=== PATIENT | male | born 1965 | race Caucasian/White ===

== ENCOUNTER 2016-05-03 16:36 | Emergency (ER) | payer OTHER ==
[~2016-05-03] VITALS: Ht 177.8 cm; Wt 110.0 kg
[2016-05-03 16:38] VITALS: BP 144/85; PULSE 92; RESP 20; TEMP 97.9; O2SAT 96
--- NOTE | 2016-05-03 16:48 | PD ---
HPI Chief Complaint: Back/ Neck Pain or Injury Time Seen by Provider: 16:47 Travel History International Travel<30 days: No Contact w/Intl Traveler<30days: No Traveled to known affect area: No History of Present Illness HPI 50-year-old male with no significant medical history presents to the emergency department for evaluation a right lower back pain radiating into the anterior right thigh. Patient states it began about 1 week ago when he had it under control until walking up pacing in detail yesterday. He slipped but did not fall but this exacerbated the pain. Denies any saddle paresthesia, loss of bowel or bladder, or lower extremity weakness. No recent illnesses, fever, or chills. No other symptoms to report. PFSH Past Medical History Medical History: Denies Significant Hx Social History Alcohol Use: No Tobacco Use: No Substance Use: No Allergies-Medications (Allergen,Severity, Reaction): Coded Allergies: No Known Allergies (Unverified , 05/03/16) Review of Systems Except as stated in HPI: all other systems reviewed are Neg Physical Exam Narrative GENERAL: Well-nourished male patient, in no acute distress. Patient is ambulatory with a nonantalgic gait SKIN: Warm and dry. HEAD: Atraumatic. Normocephalic. EYES: Pupils equal and round. No scleral icterus. No injection or drainage. ENT: No nasal bleeding or discharge. Mucous membranes pink and moist. NECK: Trachea midline. No JVD. CARDIOVASCULAR: Regular rate and rhythm. No murmur appreciated. RESPIRATORY: No accessory muscle use. Clear to auscultation. Breath sounds equal bilaterally. GASTROINTESTINAL: Abdomen soft, non-tender, nondistended. Hepatic and splenic margins not palpable. MUSCULOSKELETAL: No obvious deformities. No clubbing. No cyanosis. No edema. No midline spinal tenderness. Tenderness elicited palpation of the right sacroiliac joint. 5+ strength equal bilateral lower extremities. Sensation intact distal lower extremities. Negative Babinski. No ankle clonus. No hyperreflexia. NEUROLOGICAL: Awake and alert. No obvious cranial nerve deficits. Motor grossly within normal limits. Normal speech. PSYCHIATRIC: Appropriate mood and affect; insight and judgment normal. Data Data Last Documented VS Vital Signs Date Time Temp Pulse Resp B/P Pulse Ox O2 Delivery O2 Flow Rate FiO2 05/03/16 16:38 97.9 92 20 144/85 96 Room Air Orders Ketorolac Inj (Toradol Inj) (05/03/16 17:00) Orphenadrine Inj (Norflex Inj) (05/03/16 17:00) Splint Or Brace Apply/Monitor (05/03/16 16:54) MDM Medical Decision Making Medical Screen Exam Complete: Yes Emergency Medical Condition: Yes Medical Record Reviewed: Yes Differential Diagnosis Sciatica versus sacroiliitis versus low back strain versus discogenic pain versus lumbar radiculopathy Narrative Course 50-year-old male presents to the emergency department for evaluation of low back pain. Patient appears without distress. He does have some tenderness elicited over the sacroiliac joint. There are no other deficits noted. Patient is given anti-inflammatory muscle relaxant here. He'll be discharged home with anti-inflammatory medication as well. He is also provided a quick draw back brace and counseled on care. He is advised to follow-up with a primary care provider and return immediately with any acute worsening of symptoms. Diagnosis Primary Impression: Low back pain Qualified Code: M54.41 - Acute right-sided low back pain with right-sided sciatica Referrals: Primary Care Physician Patient Instructions: General Instructions, Sciatica (ED) Additional Instructions: Avoid heavy lifting, bending, and twisting Quick drop back brace for support when ambulatory. Do not wear this at all times as it will weaken her core muscles, possibly worsening low back pain It is important that you establish care with a primary care provider Return immediately to the emergency department with any acute worsening of symptoms Med/Other Pt SpecificInfo: Prescription(s) given Scripts Methylprednisolone Dosepak (Medrol Dosepak)4 Mg Dspk4 Mg PO DIRECTED #1 DSPK Ref 0 Per Pharmacist direction Prov:Mitzy Atwood 05/03/16 Disposition: 01 DISCHARGE HOME Condition: Stable Mitzy Atwood May 03, 2016 16:48
[2016-05-03] MEDS ORDERED: ORPHENADRINE INJ 60 MG/2 ML AMP IM ONE (17:00)
[2016-05-03] MEDS ORDERED: KETOROLAC TROMETHAMINE 60 MG/2 ML (IM) VIAL IM ONE (17:00)
[2016-05-03] MEDS ORDERED: MEDR4PAK PO (17:05)
[2016-05-03] MEDS ORDERED: TRAM50TA PO (17:06)
== END 2016-05-03 17:38 | disposition home or self-care (01) ==
LOC: NEPB 16:36
DX: M54.41 Lumbago with sciatica, right side (principal); X58.XXXA Exposure to other specified factors, initial encounter
CPT/HCPCS: 96372; 99283; J1885; J2360; L0627